=== PATIENT | female | born 1960 | race Caucasian/White ===

== ENCOUNTER 2018-06-28 10:09 | Outpatient (CLI) | payer BC, SELFPAY ==
--- NOTE | 2018-06-28 09:57 | DI.RAD_ITS ---
SYMPTOM/DIAGNOSIS: PAIN RIGHT FEMUR: Four views were obtained. 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 There are mild degenerative changes of the hip. Mild sclerosis noted adjacent to the pubic symphysis which is a nonspecific finding. No other abnormality is seen.
== END 2018-06-28 10:29 ==
PROVIDERS: PCP Family Medicine; Visit Provider Physician Assistant Surgical
DX: M79.604 Pain in right leg (principal); Z96.651 Presence of right artificial knee joint; Z47.1 Aftercare following joint replacement surgery
CPT/HCPCS: 73552

== ENCOUNTER 2018-07-11 01:54 | Outpatient (CLI) | payer BC, SELFPAY ==
[2018-07-11 07:45] LABS: Bilirubin Negative (Negative); Blood Negative (Negative); Clarity Clear; Glucose Negative (Negative); Ketones Negative (Negative); Leukocyte Esterase Negative (Negative); Nitrite Negative (Negative); Specific Gravity 1.025 (1.005-1.025); Urobilinogen 0.2 EU/dL (Up TO 0.2)
[2018-07-11 08:10] LABS: ALT 35 U/L (12-78); AST 15 U/L (15-37); Albumin 3.9 g/dL (3.4-5.0); Alkaline Phosphatase 73 U/L (46-116); Anion Gap 9.6 mmol/L (3-11); BUN 20 mg/dL (7-18); Bilirubin, Total 0.6 mg/dL (0.2-1.0); CO2 27.4 mmol/L (21.0-32.0); CREATININE 0.94 mg/dL (0.55-1.02); Chloride 104 mmol/L (98-107); Cholesterol 169 mg/dL (50-200); Glucose 122 mg/dL (70-100); HDL Cholesterol 34 mg/dL (40-60); LDL CHOLESTEROL 101 mg/dL (<100); Potassium 3.8 mmol/L (3.5-5.1); Sodium 141 mmol/L (136-145); Total Protein 6.7 g/dL (6.4-8.2); Triglyceride 222 mg/dL (30-150)
== END 2018-07-11 02:14 ==
PROVIDERS: PCP Family Medicine; Visit Provider Family Medicine
DX: I10 Essential (primary) hypertension (principal); E78.1 Pure hyperglyceridemia
CPT/HCPCS: 36415; 80053; 80061; 83721; 81003

== ENCOUNTER 2018-10-25 10:45 | Outpatient (CLI) | payer BC, SELFPAY ==
--- NOTE | 2018-10-25 10:42 | DI.RAD_ITS ---
SYMPTOMS/DIAGNOSIS: PAIN RIGHT ELBOW: Two views. No priors. No acute abnormality is identified. The articular surfaces are well maintained. Mild dystrophic calcifications are seen adjacent to the lateral epicondyle. These may reflect chronic injury. The soft tissues are unremarkable. IMPRESSION: No definite acute abnormality. Please correlate with the patient's clinical history. LEFT ELBOW: Two views. No priors. There is narrowing and periarticular spurring in the medial joint space. The lateral joint space appears well maintained. The bones are intact and normally mineralized. The soft tissues are unremarkable. 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
== END 2018-10-25 11:05 ==
PROVIDERS: PCP Family Medicine; Visit Provider Physician Assistant Surgical
DX: M25.522 Pain in left elbow (principal); M25.521 Pain in right elbow; M19.022 Primary osteoarthritis, left elbow
CPT/HCPCS: 73070

== ENCOUNTER 2018-10-25 11:34 | Outpatient (CLI) | payer BC, SELFPAY ==
[2018-10-25 12:23] LABS: Abs Immature Grans 0.03 k/cumm (0.0-0.09); Absolute Basophil Count 0.03 k/cumm (0.0-0.2); Absolute Lymphocyte Count 1.68 k/cumm (1.2-3.4); Absolute Monocyte Count 0.47 k/cumm (0.11-0.7); Absolute Neutrophil Count 7.56 k/cumm (1.2-6.7); Basophils % 0.3; HCT 41.4 % (36.0-46.0); HGB 14.1 g/dL (12.0-15.5); Immature Grans % 0.3; Mean Corp. HGB Concentration 34.1 g/dL (32.0-36.0); Mean Corpuscular Hemoglobin 28.5 pg (27.0-33.0); Mean Corpuscular Volume 83.8 fL (80-95); Mean Platelet Volume 11.8 fL (8.0-11.0); Monocytes % 4.8; Neutrophils % 76.6; Platelet Count 186 x1000/uL (130-400); RBC 4.94 m/cumm (4.00-5.20); RBC Distribution Width 14.1 % (11.7-14.6); White Blood Cell Count 9.87 k/cumm (4.4-10.8)
[2018-10-25 12:53] LABS: Bilirubin Negative (Negative); Blood Small (Negative); Clarity Cloudy; Glucose Negative (Negative); Ketones Negative (Negative); Leukocyte Esterase Moderate (Negative); Nitrite Negative (Negative); Specific Gravity 1.025 (1.005-1.025); Urobilinogen 0.2 EU/dL (Up TO 0.2); pH 5.5 (5-8)
[2018-10-25 13:20] LABS: C-Reactive Protein 0.24 mg/dL (0.0-0.3)
[2018-10-25 13:32] LABS: C & S Indicated? C&S Done As Ordered; Mucus Trace (Negative); WBC >50 HPF (0-5)
[2018-10-25 13:39] LABS: ESR 21 MM/HR (0-30)
[2018-10-26 14:26] LABS: ANA Interpretation Negative (NEGAT)
== END 2018-10-25 11:54 ==
PROVIDERS: PCP Family Medicine; Visit Provider Orthopaedic Surgery
DX: R30.0 Dysuria (principal); M25.521 Pain in right elbow; M25.522 Pain in left elbow
CPT/HCPCS: 36415; 85652; 87077; 81003; 81015; 85025; 86038; 86140; 87086; 87186